=== PATIENT | male | born 1980 | race African-American/Black ===

== ENCOUNTER 2021-02-13 07:25 | Emergency (ER) | payer SELFPAY ==
[~2021-02-13] VITALS: Ht 195.6 cm; Wt 86.2 kg
[2021-02-13] MEDS ORDERED: FLUORESCEIN SOD(OPTH) 1 MG STRP ONE (07:58)
[2021-02-13] MEDS ORDERED: TETRACAINE HCL 0.5% OPTH SOLN 4 ML BTL ONE (07:58)
[2021-02-13] MEDS ORDERED: MAXITROL EYE DRO5 ML OP (08:04)
== END 2021-02-13 08:25 | disposition home or self-care (01) ==
LOC: FSED 08:05
DX: H00.014 Hordeolum externum left upper eyelid (principal)
CPT/HCPCS: 99282

== ENCOUNTER 2021-02-19 18:26 | Emergency (ER) | payer SELFPAY ==
[~2021-02-19] VITALS: Ht 195.6 cm; Wt 86.2 kg
[~2021-02-19 18:26] MED LIST: MAXITROL EYE DRO5 ML OP
[2021-02-19] MEDS ORDERED: KETOROLAC TROMETHAMINE 60 MG/2 ML VIAL IM ONE (19:15)
[2021-02-19] MEDS ORDERED: INDOCIN50 MG PO (19:28)
== END 2021-02-19 19:45 | disposition home or self-care (01) ==
LOC: FSED 19:15
DX: M79.675 Pain in left toe(s) (principal)
CPT/HCPCS: 99282; J1885

== ENCOUNTER 2021-03-21 13:19 | Emergency (ER) | payer SELFPAY ==
[~2021-03-21] VITALS: Ht 195.6 cm; Wt 86.2 kg
[~2021-03-21 13:19] MED LIST changes: +INDOCIN50 MG PO
[2021-03-21] MEDS ORDERED: NAPROSYN500 MG PO (14:20)
== END 2021-03-21 14:28 | disposition home or self-care (01) ==
LOC: FSED 13:35
DX: S90.31XA Contusion of right foot, initial encounter (principal); X58.XXXA Exposure to other specified factors, initial encounter; F17.210 Nicotine dependence, cigarettes, uncomplicated
CPT/HCPCS: 99283

== ENCOUNTER 2021-03-31 08:11 | Emergency (ER) | payer SELFPAY ==
[~2021-03-31 08:11] MED LIST changes: +NAPROSYN500 MG PO
== END 2021-03-31 09:40 | disposition home or self-care (01) ==
LOC: FSED 08:12
DX: R05 Cough (principal); J40 Bronchitis, not specified as acute or chronic; R53.81 Other malaise; F17.210 Nicotine dependence, cigarettes, uncomplicated
CPT/HCPCS: 99282

== ENCOUNTER 2021-04-16 17:06 | Emergency (ER) | payer SELFPAY ==
[~2021-04-16] VITALS: Ht 195.6 cm; Wt 86.2 kg
== END 2021-04-16 17:50 | disposition left against medical advice (07) ==
LOC: FSED 17:20
DX: Z53.21 Procedure and treatment not carried out due to patient leaving prior to being seen by health care provider (principal)